=== PATIENT | male | born 1955 | race Caucasian/White ===

== ENCOUNTER → 2016-06-26 | Outpatient (CLI) | payer OTHER | LOC: FIMAGING 14:10 | PROVIDERS: ATTEND Family Medicine | DX: Z13.6 Encounter for screening for cardiovascular disorders (principal) | CPT/HCPCS: 0126T ==

== ENCOUNTER 2018-09-04 06:02 | Day surgery (SDC) | payer OTHER ==
[2018-09-04] MEDS ORDERED: LR 1,000 ML IV ONE (06:24)
[2018-09-04] MEDS ORDERED: ceFAZolin 2 GM/DEXTROSE 100 ML IV ONE (06:24)
[2018-09-04] MEDS ORDERED: oxyCODONE IR 5 MG TAB PO PRN (07:02)
[2018-09-04] MEDS ORDERED: NALOXONE HCL 0.4 MG/ML INJ IVP PRN (07:02)
[2018-09-04] MEDS ORDERED: LR 500 ML IV PRN (07:02)
[2018-09-04] MEDS ORDERED: PROMETHAZINE HCL 25 MG/ML INJ IVP PRN (07:02)
[2018-09-04] MEDS ORDERED: fentaNYL 100 MCG/2 ML INJ IVP PRN (07:02)
[2018-09-04] MEDS ORDERED: MIDAZOLAM 2 MG/2 ML VIAL IVP ONE (07:02)
[2018-09-04] MEDS ORDERED: HYDROmorphONE/DILAUDID 1 MG/ML INJ IVP PRN (07:02)
[2018-09-04] MEDS ORDERED: ONDANSETRON 4 MG/2 ML VIAL IVP PRN (07:02)
--- NOTE | 2018-09-04 07:05 | PDANEPAE ---
ANE History of Present Illness Inguinal Hernia ANE Past Medical History - Cardiovascular History Hx Hypertension: No Hx Arrhythmias: No Hx Chest Pain: No Hx Coronary Artery / Peripheral Vascular Disease: No Hx CHF / Valvular Disease: No Hx Palpitations: No - Pulmonary History Hx COPD: No Hx Asthma/Reactive Airway Disease: No Hx Recent Upper Respiratory Infection: No Hx Oxygen in Use at Home: No Hx Sleep Apnea: No Sleep Apnea Screening Result - Last Documented: Negative - Neurologic History Hx Cerebrovascular Accident: No Hx Seizures: No Hx Dementia: No - Endocrine History Hx Diabetes: No - Renal History Hx Renal Disorders: No - Liver History Hx Hepatic Disorders: No - Neurological & Psychiatric Hx Hx Neurological and Psychiatric Disorders: No - Cancer History Hx Cancer: Yes Cancer History Comment: skin cancer removed - Congenital Disorder History Hx Congenital Disorders: No - GI History Hx Gastrointestinal Disorders: No - Other Health History Other Health History: none - Chronic Pain History Chronic Pain: No - Surgical History Prior Surgeries: microdiscectomy 02/11. wisdom teeth ANE Review of Systems Review of Systems: - Exercise capacity METS (RN): 6 METS ANE Patient History - Allergies Allergies/Adverse Reactions: No Known Allergies Allergy (Verified 09/01/18 12:40) - Home Medications Home Medications: NK [No Known Home Meds] 09/01/18 [Last Taken Unknown] - NPO status NPO Since - Liquids (Date): 09/03/18 NPO Since - Liquids (Time): 22:00 NPO Since - Solids (Date): 09/03/18 NPO Since - Solids (Time): 20:30 - Smoking Hx Smoking Status: Never smoked - Family Anes Hx Family Hx Anesthesia Complications: none ANE Labs/Vital Signs - Vital Signs Blood Pressure: 119/81 Heart Rate: 54 Respiratory Rate: 18 O2 Sat (%): 97 Height: 190.5 cm Weight: 77.111 kg ANE Physical Exam - Airway Neck exam: FROM Mallampati Score: Class 2 Mouth exam: normal dental/mouth exam - Pulmonary Pulmonary: clear to auscultation - Cardiovascular Cardiovascular: regular rate and rhythym - ASA Status ASA Status: I ANE Anesthesia Plan Anesthesia Plan: general endotracheal anesthesia
[2018-09-04] MEDS ORDERED: BUPIVACAINE 0.25% 30 ML SDV ONE (07:11)
[2018-09-04] MEDS ORDERED: PROPOFOL 200 MG/20 ML VIAL ONE (07:17)
[2018-09-04] MEDS ORDERED: fentaNYL 100 MCG/2 ML INJ ONE ×2 (07:18→08:03)
[2018-09-04] MEDS ORDERED: ROCURONIUM 50 MG/5 ML VIAL ONE (07:20)
[2018-09-04] MEDS ORDERED: ONDANSETRON 4 MG/2 ML VIAL ONE (07:20)
[2018-09-04] MEDS ORDERED: DEXAMETHASONE 4 MG/ML VIAL ONE ×2 (07:20)
--- NOTE | 2018-09-04 07:21 | PDHPUP ---
History & Physical Update H&P update statement: This history and physical update is based on an assessment of the patient which was completed after admission or registration (within 24 hours), but prior to the surgery/procedure. H&P update: H&P reviewed & patient examined, no change in patient's condition since H&P completed
[2018-09-04] MEDS ORDERED: SUGAMMADEX SODIUM 200 MG/2 ML VIAL IVP ONE (08:13)
--- NOTE | 2018-09-04 08:40 | POSTANESTH ---
Post Anesthetic Evaluation Cardiovascular Status: Normal, Stable Respiratory Status: Normal, Stable Level of Consciousness/Mental Status: Can Participate in Eval, Alert and Oriented Pain Control: Adequate, Prn Tx Ordered Nausea/Vomiting Control: Adequate, Prn Tx Ordered Complications Possibly Related to Anesthesia: None Noted
[2018-09-04] MEDS ORDERED: OXYCODONE/APAP 5/325 TAB PO PRN (09:02)
--- NOTE | 2018-09-04 09:02 | POSTOPPROG ---
Post Op Note Date of Operation: 09/04/18 Surgeon: Sarmad Field (, FACS) Anesthesiologist: Andrew Jameson DO Anesthesia: GET(General Endotracheal) Pre-op Diagnosis: LIH Post-op Diagnosis: direct LIH Procedure: lap LIH Findings: direct LIH Inf/Abcess present in the surg proc area at time of surgery?: No Bowel Protocol: N/A Clean Closure Performed: N/A
--- NOTE | 2018-09-04 09:47 | GOP ---
[f rep st] OPERATIVE REPORT DATE OF OPERATION: SURGEON: Sarmad Field MD ANESTHESIOLOGIST: Andrew Jameson DO PREOPERATIVE DIAGNOSIS: Left inguinal hernia. POSTOPERATIVE DIAGNOSIS: Left inguinal hernia. PROCEDURE PERFORMED: Laparoscopic preperitoneal left inguinal herniorrhaphy. FINDINGS: Moderate-sized direct left inguinal hernia. No evidence of indirect or femoral canal monica ia. ESTIMATED BLOOD LOSS: Less than 5 mL. DESCRIPTION OF PROCEDURE: After informed consent was obtained, the patient was brought to the operat ing room and placed under general anesthesia. The lower abdomen was prepped and draped in the usual fashion. Before proceeding, a time-out and identification of the patient were performed. 0.25% Marcaine was used to infiltrate all incision sites. A transverse incision was made below the u mbilicus and carried through the skin and subcutaneous tissues. The midline fascia was incised trans versely, and a plane of dissection was entered posterior to the left rectus muscle and anterior to th e left posterior rectus sheath. A balloon dissector was introduced and advanced to the pubis. This was deployed under direct laparoscopic visualization, deflated, removed, and replaced with a structur al balloon port. This was deployed, and a pneumopreperitoneum was established with CO2 gas to a pres sure of 12 mmHg. A 0-degree scope was reintroduced, and the preperitoneal space was visualized. An additional 5 mm port was placed partway between the umbilicus and the pubis and a 3rd port was placed suprapubically. This allowed introduction of atraumatic grasping forceps. This allowed dissecting the remainder of the preperitoneum and reducing the hernia contents, which were composed primarily of preperitoneal fat. The hernia sac composed of peritoneum was reflected posteriorly. Otto ligamen t was cleared and the internal ring identified and inspected for evidence of an indirect hernia. The re was none noted. There was no femoral canal hernia noted. The sheet of 3DMax mesh was brought int o the field (medium positioned over the inguinal floor after being passed through the came ra port). This was secured to Otto ligament medially with 3 firings of the AbsorbaTack. The pneum opreperitoneum was evacuated, allowing the peritoneum to come in contact with the mesh. All ports we re removed. The infraumbilical fascial defect was repaired with interrupted 0-Vicryl sutures. The s ubcutaneous tissues were closed with a 3-0 Vicryl suture. The skin was closed with a 4-0 Monocryl vasques ture in a subcuticular fashion. Topical Dermabond was applied. The patient was returned to the [facility] very room in satisfactory condition. Needle, sponge, and instrument counts were correct. COMPLICATIONS: None. /[id number]/MODL
[2018-09-04 11:07] VITALS: BP 120/86
== END 2018-09-04 11:09 | disposition home or self-care (01) ==
LOC: FSGY 06:02
PROVIDERS: ATTEND Surgery
PROC: 0YU64JZ Supplement Left Inguinal Region with Synthetic Substitute, Percutaneous Endoscopic Approach (ICD-10-PCS; principal; 2018-09-04 07:30)
DX: K40.90 Unilateral inguinal hernia, without obstruction or gangrene, not specified as recurrent (principal); E78.5 Hyperlipidemia, unspecified
CPT/HCPCS: C1727; C1781; J0690; J1100; J2250; J2405; J2704; J3010